=== PATIENT | male | born 1980 | race Caucasian/White ===

== ENCOUNTER 2025-03-01 22:31 | Emergency (ER) | payer MEDICARE, OTHER ==
[~2025-03-01] VITALS: Ht 172.7 cm; Wt 113.0 kg
[2025-03-01 23:13] LABS: MEAN PLATELET VOLUME 9.5 FL (7.4-10.4); RED CELL DISTRIBUTION WIDTH 14.0 % (11.5-14.5)
[2025-03-01 23:17] LABS: CREATININE 0.96 MG/DL (0.60-1.10); TOTAL CARBON DIOXIDE 25.9 MMOL/L (24-32); eCRCL 96 ML/MIN; eGFR 85 ML/MIN
--- NOTE | 2025-03-02 00:37 | Physician Documentation ---
History of Present Illness ~ Chief Complaint: Abdominal Pain Stated Complaint: ABD PAIN Time Seen by MD: 00:35 OK to notify your PCP?: Yes Source: patient Mode of Arrival: Ambulatory Exam Limitations: no limitations HPI 44 year old male presents to the ED with complaints of left lower quadrant abdominal pain which radiates to his left groin and also back. In the ED he states, I hurt like hell, pain onset sometime between 8-8:30. Positive nausea/vomiting. No fevers but he has been sweating. No history of kidney stones. Patient denies any other associated symptoms. Patient denies any other alleviating or exacerbating factors at this time. Medication Reconciliation Allergies: Coded Allergies: No Known Allergies (Unverified , 03/01/25) Scheduled Ondansetron 8mg ODT (Ondansetron Odt), 1 TAB PO Q6H Past Medical History Past Medical History: No Pertinent History Past Surgical History: noncontributory Smoking Status: Unknown if ever smoked Lives with: Family Lives In: Home Review of Systems All Other Systems at this time: Reviewed and Negative ROS As stated above in the HPI, otherwise all systems are reviewed and negative. Physical Exam Vital Signs: RN Vital Signs have been reviewed: Yes, Temperature: 98.6, Source: Oral, Heart Rate: 60, Respiratory Rate: 15, BP: 189/123, Pulse Oximetry: 98, Weight: 113.000 Oxygen Flow Rate: 0 Pulse Oximetry Reflects: adequate oxygenation Physical Exam General: Patient is awake, alert, oriented x4 in no acute distress and uncomfortable appearing.~ Head: Normocephalic and atraumatic. Eyes: Conjunctival normal. EOMI. PERRL. ENT: Mucous membranes moist. Neck: Supple, trachea is midline. Chest: Clear to auscultation bilaterally without rales, rhonchi, or wheezes. There is no accessory muscle use or retractions. Cardiac: RRR without murmurs, gallops, or rubs. Abd: Left lower quadrant abdominal tenderness to palpation. Soft, nondistended, with normoactive bowel sounds. No guarding, rebound, or rigidity. Extremities: Normal strength. Normal range of motion. No deformities or edema. Back: No midline spinal or CVA tenderness. Skin: Warm and dry with no significant rash appreciated. Neuro: Cranial nerves II-XII grossly intact. No focal neuro deficits. Progress Results/Orders Results/Orders Orders - ALESSANDRO LAL MD Ct Abdomen Pelvis (03/02/25 00:38) Completed Orders - ALESSANDRO LAL MD Cbc/Diff (03/01/25 22:42) BMP (03/01/25 22:42) Lipase (03/01/25 22:42) CMP (03/01/25 22:42) Ketorolac Trometh 15mg/Ml Vial (Toradol (03/02/25 00:40) Ondansetron Inj. (Zofran 4mg/2ml Vial) (03/02/25 00:40) Morphine 4mg/Ml Inj. (Morphine Inj.) (03/02/25 00:40) Ct Abdomen Pelvis (03/02/25 00:38) Normal Saline 1000ml (0.9% Sodium Chlori (03/02/25 00:40) Fentanyl/Pf (Fentanyl 0.05 Mg/Ml Syringe (03/02/25 01:00) Tamsulosin Capsule (Flomax Capsule) (03/02/25 02:35) Ua W/Microscopic, Cult If Ind (03/02/25 01:55) Medications Received in ER Medications (Trade) Dose Ordered Sig/Kimi Route PRN Reason Start Time Stop Time Status Last Admin Dose Admin (Toradol injection) 15 mg ONCE ONCE IV 03/02/25 00:40 03/02/25 00:41 DC 03/02/25 01:03 15 MG (Zofran 4mg/2ml vial) 8 mg ONCE ONCE IV 03/02/25 00:40 03/02/25 00:41 DC 03/02/25 01:02 8 MG Sodium Chloride 1,000 ml @ 1,000 mls/hr ONCE ONCE IV 03/02/25 00:40 03/02/25 01:39 DC 03/02/25 01:05 1,000 MLS/HR (fentaNYL 0.05 MG/ML syringe) 75 mcg ONCE ONCE IV 03/02/25 01:00 03/02/25 01:04 DC 03/02/25 01:09 75 MCG (Flomax capsule) 0.4 mg ONCE ONCE PO 03/02/25 02:35 03/02/25 02:36 DC 03/02/25 02:44 0.4 MG Vital Signs 03/01/25 03/02/25 03/02/25 03/02/25 22:39 00:16 00:20 01:03 Temp 98.6 98.6 Pulse 57 60 Resp 15 16 B/P (MAP) 192/110 189/123 (145) Pulse Ox 96 98 O2 Flow Rate 0 03/02/25 03/02/25 03/02/25 01:09 01:15 02:17 Pulse 67 87 Resp 16 16 16 B/P (MAP) 118/116 (117) 160/102 (121) Pulse Ox 99 98 O2 Flow Rate 0 0 Laboratory Tests Test 03/01/25 22:53 03/02/25 01:55 White Blood Count 8.0 Red Blood Count 5.03 Hemoglobin 16.2 Hematocrit 46.4 Mean Corpuscular Volume 92.3 Mean Corpuscular Hemoglobin 32.3 H Mean Corpuscular Hemoglobin Concent 35.0 Red Cell Distribution Width 14.0 Platelet Count 212 Mean Platelet Volume 9.5 Neutrophils (%) (Auto) 67.9 Lymphocytes (%) (Auto) 23.4 Monocytes (%) (Auto) 6.7 Eosinophils (%) (Auto) 1.5 Basophils (%) (Auto) 0.5 Neutrophils # (Auto) 5.4 Lymphocytes # (Auto) 1.9 Monocytes # (Auto) 0.5 Eosinophils # (Auto) 0.1 Basophils # (Auto) 0.0 CBC Comment Sodium Level 141 Potassium Level 3.7 Chloride Level 103 Carbon Dioxide Level 25.9 Anion Gap 12 Blood Urea Nitrogen 9 Creatinine 0.96 Estimated GFR/1.73 m2 85 BUN/Creatinine Ratio 9.4 L Glucose Level 159 H Calcium Level 9.2 Total Bilirubin 1.2 H Aspartate Amino Transf (AST/SGOT) 31 Alanine Aminotransferase (ALT/SGPT) 31 Alkaline Phosphatase 83 Total Protein 8.0 Albumin 4.1 Globulin 3.9 Albumin/Globulin Ratio 1.1 Lipase 41 Chemistry Comments Urine Specimen Description Cln catch midstream Urine Color Yellow Urine Clarity Slightly cloudy Urine pH 8.5 Urine Specific [place] 1.015 Urine Protein Negative Urine Glucose (UA) Negative Urine Ketones 40 H Urine Occult Blood Large H Urine Nitrite Negative Urine Bilirubin Negative Urine Urobilinogen 1.0 Urine Leukocyte Esterase Negative Urine RBC 20-50 Urine WBC 0-4 Urine Squamous Epithelial Cells Few Urine Bacteria 1+ Urine Mucus Moderate Urine Culture Indicated Not ind Volume Urine Centrifuged 10 ml Urine Comment Medical Decision Making Additional information obtaine: N/A Findings Patient presented to the emergency room with left-sided abdominal pain. Diffe rentials include but are not limited to kidney stone, urinary tract infection, intra-abdominal infection, constipation, small-bowel obstruction therefore emergent labs and imaging indicated. Labs and imaging consistent for a kidney stone. No evidence of acute kidney injury, no evidence of urinary tract infection and patient's pain that has controlled. I believe he will do well on outpatient basis. ER precautions regarding fever or uncontrolled pain discussed. Unfortunately, I was unable to prescribe either tamsulosin or [place] by transmitting and had to write hard copies. Diff Dx GI Bleed:Consideration: Include: AE fistula, Angiodysplasia, Bleeding diathesis, Blood loss anemia, Carcinoma, Diverticulosis, Diverticulitis, Esophageal varicies, Esophagitis, Gastritis, Gastroenteritis, Inflammatory BD, Blessing-Leon syndrome, Meckel's diverticulum, PUD, Other Diff Dx Pain:Considerations: Include: AAA, Angina/NV, Aortic dissection, Appendicitis, Bowel obstruction, Cholangitis, Cholecystitis, Cholelithasis, Constipation, Diverticular disease, Esophageal rupture, Esophagitis, Gastritis, Gastroenteritis, GI hemorrhage, Hepatitis, Hernia, Inflammatory BD, Ischemic bowel, Mass, Pancreatitis, Porphyria, PUD, Testicular torsion, Trauma, intraabdominal, Urinary obstruction, Urinary tract infection, Urolithiasis, Other Diff Dx N/V/D:Considerations: Include: Appendicitis, Bowel obstruction, Dehydration, DKA, Diarrhea - bacterial, Diarrhea - parasitic, Diarrhea - viral, Diverticulitis, Diverticulosis, Drug toxicity, Electrolyte imbalance, Food poisoning, Gastroenteritis, GE reflux, GI bleed, Hepatitis, Hernia, Hypovolemia, Hypotension, Inflammatory BD, Impaction, Malnutrition, Pancreatitis, PUD, Renal failure, Urinary obstruction, UTI, Urolithiasis, Other Diff Dx Rectal:Considerations: Include: Fissure, Fistula, Foreign body, Impaction, Perirectal abscess, Prostatitis, Rectal prolapse, Subcutaneous abscess, Thrombosed hemorrhoid, Ulcer, UTI, Other Departure Disposition: 01 HOME / SELF CARE / HOMELESS Impression: Primary Impression: Kidney stone Condition: Stable Discharge Instructions: Kidney Stones Additional Instructions: Unfortunately I had to write hard copies for your Flomax as well as your [place]. Give us a call at [phone] if there are any problems Referrals: NO PRIMARY CARE PROVIDER (PCP) Prescriptions Ondansetron 8mg ODT (Ondansetron Odt) 8 Mg Tab.rapdis 1 TAB PO Q6H for nausea/vomiting for 3 Days, #12 TAB 0 Refills Prov: ALESSANDRO LAL MD 03/02/25 Signature Scribe Signature: Scribed for Alessandro Lal MD by Saúl Shannon . 03/02/25 01:08 Attestation: The note accurately reflects work and decisions made by me.Alessandro Lal MD 03/02/25 02:55 ALESSANDRO LAL MD Mar 02, 2025 00:37 SAÚL MCDONALD Mar 02, 2025 01:08
[2025-03-02] MEDS: ondansetron/PF 4mg/2ml inj IV ONE (01:02)
[2025-03-02] MEDS: ketorolac trometh 15mg/ml vial 15 MG/ML ML IV ONE (01:03)
[2025-03-02] MEDS: normal saline 1000ml 1,000 ML IV ONE (01:05)
[2025-03-02] MEDS: morphine 4 MG/ML inj SYRINge IV ONE (01:06)
[2025-03-02] MEDS: fentaNYL/PF 50MCG/1 ML 2ML syringe IV ONE (01:09)
[2025-03-02] MEDS ORDERED: HYDR-3965 PO (02:40)
[2025-03-02 02:45] LABS: LEUKOCYTE ESTERASE ,URINE NEGATIVE (Neg); NITRITES, URINE NEGATIVE (Neg); OCCULT BLOOD,URINE LARGE (Neg); UA COLLECTION TYPE CLN CATCH MIDSTREAM
[2025-03-02 02:49] LABS: MUCUS STRANDS MODERATE /LPF (Neg); SQUAMOUS EPITHELIAL CELL,UR FEW /LPF (FEW)
--- NOTE | 2025-03-02 02:51 | RADIOLOGY REPORT ---
EXAM: CT CT ABDOMEN PELVIS History: left abd pain Comparison Study: None TECHNIQUE: Multidetector spiral CT of the abdomen was performed from lung bases to pubic symphysis. Imaging was performed without IV contrast. Axial, coronal and sagittal multiplanar reformats were obtained from the axial data set by the technologist. Radiation Dose : 1. Abdomen/Pelvis: CTDIvol 32.62 mGy, DLP 2099.44 mGy*cm. FINDINGS: Evaluation of solid organs is limited due to lack of intravenous contrast use. Lung Bases: No acute or significant lung base finding. Normal heart size. No pleural or pericardial effusion. Liver: The liver is normal in size. Mild diffuse hepatic steatosis. No focal lesions. Gallbladder and Biliary Tree: Moderate gallbladder distention. Spleen: Unremarkable Pancreas: The pancreas is grossly normal in appearance. Adrenal Glands: Unremarkable Kidneys: Moderate to severe left hydroureteronephrosis and perinephric inflammatory change secondary to a partially obstructing 4 mm proximal ureterolith. Additional nonobstructing bilateral pelvocaliceal calculi measure up to 6 mm. No evidence of right hydronephrosis. Bladder: Grossly unremarkable for degree of distention. Bowel: The stomach is grossly normal in appearance. Small bowel and colon are normal in caliber and distribution. The appendix is not visualized; however, no secondary findings of acute appendicitis identified. Ascites: Absent Lymphadenopathy: No mesenteric, retroperitoneal or periportal lymphadenopathy. Abdominal Wall and Mesentery: Unremarkable. Vasculature: The visualized abdominal aorta is normal in size and caliber. Evaluation of abdominal and pelvic vessels is limited due to lack of intravenous contrast. Pelvic Organs: Unremarkable Musculoskeletal: No aggressive focal bony lesions, acute fractures or dislocation. IMPRESSION: 1. Moderate to severe left hydroureteronephrosis and perinephric inflammatory change secondary to a partially obstructing 4 mm proximal ureterolith. 2. Additional nonobstructing bilateral pelvocaliceal calculi. 3. Mild diffuse hepatic steatosis. 4. Moderate gallbladder distention. Radiation optimization: All CT scans at this facility use at least one of these dose optimization techniques: automated exposure control mA and/or kV adjustment per patient size (includes targeted exams where dose is matched to clinical indication) or iterative reconstruction.
[2025-03-02] MEDS ORDERED: ONDA-245 PO (02:54)
[2025-03-02 03:16] VITALS: BP 143/93; PULSE 80; RESP 14; TEMP 98.6; O2SAT 98
== END 2025-03-02 03:19 | disposition home or self-care (01) ==
LOC: ER 22:33
DX: N20.0 Calculus of kidney (principal); Z79.899 Other long term (current) drug therapy
CPT/HCPCS: 36415; 74176; 80053; 81001; 83690; 85025; 96361; 96374; 96375; 99285; J1885; J2405; J3010; J7030